=== PATIENT | female | born 2000 | race Caucasian/White ===

== ENCOUNTER 2024-05-07 15:16 | Outpatient (CLI) | payer OTHER, SELFPAY | END 2024-05-07 15:17 | disposition home or self-care (01) | LOC: NFLDREF 05-11 18:03 | PROVIDERS: Visit Provider Family Medicine | DX: N34.3 Urethral syndrome, unspecified (principal); R39.9 Unspecified symptoms and signs involving the genitourinary system | CPT/HCPCS: 87086 ==